=== PATIENT | male | born 1955 | race Caucasian/White ===

== ENCOUNTER → 2017-10-14 14:16 | Outpatient (CLI) | payer OTHER, MEDICARE, SELFPAY ==
[2017-10-14 16:06] LABS: BUN Creatinine Ratio 18.9 (6-22); Blood Urea Nitrogen 17 mg/dL (9-20); Carbon Dioxide 23 mmol/L (22-32); Chloride 106 mmol/L (98-107); Estimated Glomerular Filt Rate > 60.0 mL/min (>60); Glucose 122 mg/dL (80-110); HEMOLYSIS < 15 (0-50); Potassium 4.1 mmol/L (3.4-5.1); Sodium 144 mmol/L (137-145)
== END ==
PROVIDERS: PCP Family Medicine; Visit Provider Family Medicine
DX: R10.32 Left lower quadrant pain (principal)
CPT/HCPCS: 36415; 80048

== ENCOUNTER → 2017-10-15 12:00 | Outpatient (CLI) | payer OTHER, MEDICARE, SELFPAY ==
--- NOTE | 2017-10-15 | DI.CT.S_ITS ---
PROCEDURE: CT ABDOMEN PELVIS W CON INDICATIONS: LEFT LOWER QUADRANT TENDERNESS TECHNIQUE: After the administration of oral and intravenous contrast, 5 mm thick sections acquired from the diaphragms to the symphysis. 5 mm thick coronal and sagittal reformats were performed. For radiation dose reduction, the following was used: automated exposure control, adjustment of mA and/or kV according to patient size. COMPARISON: None. FINDINGS: Image quality: Excellent. ABDOMEN: Lung bases: Lung bases are clear. A 4 mm nodule is present in the posterolateral left lower lobe, image 16. Heart size is normal. Small hiatal hernia. Solid organs: Liver is normal in size and enhancement. Gallbladder appears normal. Biliary system is non-dilated. Pancreas enhances normally. Spleen is normal in size at 11.3 CM and shows homogeneous enhancement. There is a 8mm fatty tumor in the right adrenal gland consistent with adenoma. No left adrenal nodules. Kidneys are normal in size and enhancement, without hydronephrosis. An exophytic 5 cm water attenuation cyst is present in the upper pole of the right kidney. Peritoneum and bowel: Stomach, small bowel, and colon loops are normal in caliber and wall thickness. No diverticular disease. Normal appendix. No free fluid or air. Nodes and vessels: No retroperitoneal or mesenteric adenopathy. Aorta and inferior vena cava are normal in caliber. Miscellaneous: No ventral hernias. PELVIS: Genitourinary: Bladder wall thickness is normal. Prostate measures 3.7 x 5 cm. Miscellaneous: Bilateral fat filled inguinal hernias, left greater than right, no adenopathy. Bones: No suspicious bony lesions. Bone hemangioma right side of L1. No vertebral body compression fractures. IMPRESSION: 1. No diverticular disease or evidence of colitis to explain left lower quadrant pain. Normal appendix. 2. 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 3. Large exophytic simple cyst upper pole right kidney. 4. Small hiatal hernia. 5. A 4 mm nodule in the left lower lobe is indeterminate. Followup noncontrast CT chest in 3-6 months is suggested. Dictated by: Larry Ureña M.D. on 10/15/2017 at 13:39 Approved by: Larry Ureña M.D. on 10/15/2017 at 13:49
== END ==
PROVIDERS: PCP Family Medicine; Visit Provider Family Medicine
DX: R10.814 Left lower quadrant abdominal tenderness (principal); D35.01 Benign neoplasm of right adrenal gland; N28.1 Cyst of kidney, acquired; K44.9 Diaphragmatic hernia without obstruction or gangrene; R91.1 Solitary pulmonary nodule
CPT/HCPCS: 74177; Q9967